=== PATIENT | male | born 1950 | race Caucasian/White ===

== ENCOUNTER → 2024-03-08 06:38 | Outpatient (REF) | payer OTHER, SELFPAY ==
[2024-03-08 07:17] LABS: Hematocrit 30.2 % (39.0-52.0); Hemoglobin 10.4 g/dL (13.0-18.0); Mean Corp Hgb Conc. 34.4 g/dL (33.0-37.0); Mean Corpuscular Hgb 33.8 pg (27.0-31.0); Mean Corpuscular Volume 98.1 fL (80.0-94.0); Red Blood Cell Count 3.08 10^6/uL (4.70-6.10); Red Cell Dist. Width 14.8 % (11.5-14.5); White Blood Cell Count 4.2 10^3/uL (4.8-10.8)
[2024-03-08 07:26] LABS: INR 1.21; PT 15.1 Sec (11.4-14.6)
[2024-03-08 07:32] VITALS: BP 149/72; BP_SYST 87
[2024-03-08 07:50] LABS: Platelet Count 53 10^3/uL (130-400)
[2024-03-08] MEDS: FLUSH (NSS) 1 FLUSH IV (08:22)
[2024-03-08] MEDS: NSS (PRESERVATIVE FREE) 0.25 ML IV (08:23)
[2024-03-08] MEDS: ATIVAN 0.5 MG IV (08:23)
[2024-03-08 09:11] VITALS: BP 118/73
== END ==
LOC: RADI 06:38
PROVIDERS: ATTENDING PHYSICIAN Internal Medicine Hematology & Oncology; FAMILY PHYSICIAN Internal Medicine
DX: C92.A1 Acute myeloid leukemia with multilineage dysplasia, in remission (principal); D61.818 Other pancytopenia
CPT/HCPCS: 88305; 88311; 88312; 36415; 38222; 77012; 85027; 85610; 88313

== ENCOUNTER 2025-04-10 06:13 | Day surgery (SDC) | payer OTHER, SELFPAY ==
[2025-04-10 11:10] LABS: Glucose - Point of Care 129 mg/dl (70-99)
== END 2025-04-10 12:44 | disposition home or self-care (01) ==
LOC: GI 06:13
PROVIDERS: ATTENDING PHYSICIAN Specialist
DX: Z12.11 Encounter for screening for malignant neoplasm of colon (principal); K57.30 Diverticulosis of large intestine without perforation or abscess without bleeding; D12.3 Benign neoplasm of transverse colon; D12.0 Benign neoplasm of cecum; D12.2 Benign neoplasm of ascending colon; Z86.0101 Personal history of adenomatous and serrated colon polyps
CPT/HCPCS: 45385; 45380; 82962; 88305

== ENCOUNTER 2025-04-10 08:25 | Outpatient (RCR) | payer OTHER, SELFPAY ==
[2025-04-10 08:45] VITALS: BP 141/93
[2025-04-10] MEDS: TYLENOL 650 MG PO (09:15)
[2025-04-10 09:17] VITALS: BP 141/93
[2025-04-10 09:35] VITALS: BP 134/48
[2025-04-10 10:27] VITALS: BP 124/54
== END 2025-05-02 23:59 | disposition home or self-care (01) ==
LOC: OID 08:25
PROVIDERS: ATTENDING PHYSICIAN Internal Medicine Hematology & Oncology; FAMILY PHYSICIAN Internal Medicine; REFERRING PHYSICIAN Specialist
DX: D69.6 Thrombocytopenia, unspecified (principal); D50.9 Iron deficiency anemia, unspecified; C92.A1 Acute myeloid leukemia with multilineage dysplasia, in remission; D89.811 Chronic graft-versus-host disease
CPT/HCPCS: 36415; 36430; 86850; 86900; 86901; P9073